=== PATIENT | male | born 1995 | race Caucasian/White ===

== ENCOUNTER 2020-01-06 16:58 | Emergency (ER) | payer OTHER ==
[2020-01-06 17:15] VITALS: BP 129/66
[2020-01-06 17:33] LABS: RAPID STREP SCREEN Negative (Negative)
--- NOTE | 2020-01-06 17:39 | ED Physician Documentation ---
History of Present Illness - Stated complaint Stated Complaint: SORE THROAT - Chief complaint Chief Complaint: Heent - History obtained from History obtained from: Patient (24-year-old male patient comes in today with a chief complaint of a sore throat since yesterday. Patient denies any fevers, chills, nausea, vomiting, difficulty swallowing, foul taste or odor in his mouth. Denies any sick contacts at home. He has tried nothing for this pain.No other concerns today.) - Treatment prior to arrival Treatment prior to arrival: nothing PD PAST MEDICAL HISTORY - Allergies Allergies/Adverse Reactions: Allergies Allergy/AdvReac Type Severity Reaction Status Date / Time No Known Drug Allergies Allergy Verified 01/06/20 17:14 PD ED PE NORMAL - General General: Alert and oriented X 3, No acute distress, Well developed/nourished - HEENT HEENT: Atraumatic, PERRL, EOMI, Ears normal, Moist mucous membranes, Pharynx benign - Neck Neck: No adenopathy - Cardiac Cardiac: RRR, No murmur - Respiratory Respiratory: No respiratory distress - Derm Derm: Normal color, Warm and dry, No rash Results - Vitals Vitals: Vital Signs - 24 hr 01/06/20 17:12 Temperature 36.7 C Heart Rate 69 Respiratory 16 Rate Blood Pressure 129/66 O2 Saturation 99 Oxygen O2 Source Room air - Labs Labs: Laboratory Tests 01/06/20 17:18 Group A Strep Rapid Negative PD MEDICAL DECISION MAKING - ED course Complexity details: reviewed results, d/w patient (Patient's rapid strep test was negative today. He presents with no other symptoms other than the sore throat. Encouraged the patient to use ibuprofen or Tylenol for pain control. Encouraged patient to drink plenty of clear fluids, doing salt water gargles once or twice a day as well.) Departure - Departure Disposition: 01 Home, Self Care Clinical Impression: Sore throat (viral) Condition: Good Instructions: ED Pharyngitis Viral Comments: He can use ibuprofen or Tylenol for your sore throat. Currently continue to drink plenty of clear fluids. Should she develop a fever or difficulty swallowing next 24-48 hrs. and come back for recheck and follow-up with your primary care provider Discharge Date/Time: 01/06/20 17:57
== END 2020-01-06 17:57 | disposition home or self-care (01) ==
LOC: ED 16:58
DX: J02.8 Acute pharyngitis due to other specified organisms (principal)
CPT/HCPCS: 87070; 87430; 99281; 99283

== ENCOUNTER 2021-03-22 08:15 | Emergency (ER) | payer OTHER ==
[2021-03-22 08:23] VITALS: BP 135/69
[2021-03-22] MEDS ORDERED: PROPARACAINE 0.5% OPHTH DROPS 15 ML RIGHTEYE STA (08:50)
--- NOTE | 2021-03-22 09:15 | ED Physician Documentation ---
PD HPI OPHTHO - Stated complaint Stated Complaint: R EYE PX - Chief complaint Chief Complaint: Heent - History obtained from History obtained from: Patient - History of Present Illness Timing - onset: Last night Timing - duration: Hours Timing - details: Abrupt onset, Still present Location: Right Quality / character: Burning, Throbbing, Sharp Associated symptoms: Redness, Tearing, FB sensation Contributing factors: Blunt trauma Similar symptoms before: Has not had sx before Recently seen: Not recently seen - Additional information Additional information: Was playingPreviously well 25-year-old male this 4-year-old child yesterday when he was poked in the right eye with a finger. The patient complains of pain and burning in the eye he felt this was somewhat better this morning but continues to have a problem with the pain. He has some blurring of his vision and he has come to the emergency department for evaluation. He has not had corneal abrasion previously. He has not been ill recently and does not have any significant past medical history. No allergies. Review of Systems Constitutional: denies: Fever Eyes: reports: Irritation. denies: Decreased vision Ears: denies: Ear pain Nose: denies: Congestion Throat: denies: Sore throat Respiratory: denies: Cough GI: denies: Vomiting, Diarrhea PD PAST MEDICAL HISTORY - Past Medical History Past Medical History: No - Past Surgical History Past Surgical History: No - Present Medications Home Medications: Ambulatory Orders Medication Instructions Recorded Confirmed Neomycin/Poly/Dex Ophth Drops 1 drops RIGHTEYE QID #5 ml 03/22/21 [Maxitrol Ophth Drops] - Allergies Allergies/Adverse Reactions: Allergies Allergy/AdvReac Type Severity Reaction Status Date / Time No Known Drug Allergies Allergy Verified 03/22/21 08:23 - Social History Does the pt smoke?: No Smoking Status: Never smoker PD ED PE NORMAL - Vitals Vital signs reviewed: Yes (hypertensive ) - General General: Alert and oriented X 3, No acute distress, Well developed/nourished - HEENT HEENT: Atraumatic, PERRL, EOMI, Other (The right eye is examined there is no evidence of a hyphema or distortion of the iris the extraocular movements are intact there is mild injection to the sclera there is no obvious trauma to the cornea by the naked eye. Under magnification there is a 4 mm spot of fluorescein uptake inf/medial) - Respiratory Respiratory: No respiratory distress - Derm Derm: Normal color, Warm and dry, No rash - Extremities Extremities: No deformity, No edema - Neuro Neuro: Alert and oriented X 3, privacy attorney 2-12 intact, No motor deficit, No sensory deficit, Normal speech Eye Opening: Spontaneous Motor: Obeys Commands Verbal: Oriented GCS Score: 15 - Psych Psych: Normal mood, Normal affect Results - Vitals Vitals: Vital Signs - 24 hr 03/22/21 08:20 Temperature 36.1 C L Heart Rate 71 Respiratory 20 Rate Blood Pressure 135/69 H O2 Saturation 99 Oxygen O2 Source Room air PD MEDICAL DECISION MAKING - ED course Complexity details: considered differential, d/w patient ED course: 25-year-old previously well male with a corneal abrasion to the right cornea appears comfortable after instillation of Alcaine. We will place him on some Maxitrol ophthalmic. Departure - Departure Disposition: 01 Home, Self Care Clinical Impression: Injury of conjunctiva and corneal abrasion of right eye w/o FB Qualifiers: Encounter type: initial encounter Qualified Code(s): S05.01XA - Injury of conjunctiva and corneal abrasion without foreign body, right eye, initial encounter Condition: Stable Instructions: ED Eye Injury Corneal Abrasion Follow-Up: LAURENCE BRADLEY DO [Primary Care Provider] - Prescriptions: Neomycin/Poly/Dex Ophth Drops [Maxitrol Ophth Drops] 1 drops RIGHTEYE QID #5 ml
== END 2021-03-22 09:32 | disposition home or self-care (01) ==
LOC: ED 08:15
DX: S05.01XA Injury of conjunctiva and corneal abrasion without foreign body, right eye, initial encounter (principal); W50.0XXA Accidental hit or strike by another person, initial encounter; Y93.89 Activity, other specified
CPT/HCPCS: 99282; J3490